=== PATIENT | male | born 1970 | race Caucasian/White ===

== ENCOUNTER → 2018-09-24 | Outpatient (CLI) | payer OTHER ==
[~2018-09-24] MED LIST: ASPIRIN325 PO; DILTIAZEM 24HR120 M2 PO; FISH OIL 1,001000 M2 PO; FLECAINIDE ACE100 MG PO; IBUPROFEN 200200 M1 PO; MELATONIN10 M2 PO; TYLENOL325 MG PO; UNICOMPLEX M TA1 TA1 PO; VYTORIN 10-101 EACH PO; VYTORIN 10-201 EACH PO
== END ==
LOC: CAT 14:18
DX: Z13.6 Encounter for screening for cardiovascular disorders (principal); E78.00 Pure hypercholesterolemia, unspecified; I25.10 Atherosclerotic heart disease of native coronary artery without angina pectoris